=== PATIENT | female | born 1985 | race Caucasian/White ===

== ENCOUNTER → 2021-04-12 10:48 | Outpatient (CLI) | payer SELFPAY ==
--- NOTE | 2021-04-13 10:41 | PC.NURSE ---
notified pt of positive covid swab result
--- NOTE | 2021-04-13 12:30 | PC.NURSE ---
notified pt of positive covid result at this time.
== END ==
PROVIDERS: Visit Provider Nurse Practitioner
DX: U07.1 COVID-19 (principal)
CPT/HCPCS: C9803; U0003; U0005

== ENCOUNTER → 2022-09-13 09:45 | Outpatient (CLI) | payer BC, SELFPAY ==
[2022-09-13 17:08] LABS: Chloride 96 mmol/L (98-107); Sodium 138 mmol/L (136-145)
[2022-09-13 17:09] LABS: Potassium 4.3 mmoL/L (3.5-5.1)
[2022-09-13 17:11] LABS: Alanine Aminotransferase 16 U/L (12-78); Albumin Level 4.2 g/dl (3.5-5.0); Albumin/Globulin Ratio 1.4 (1.1-1.8); Alkaline Phosphatase 66 U/L (38-126); Anion Gap 17.3 mEq/L (5-15); Aspartate Amino Transferase 26 U/L (14-36); Bilirubin,Total 0.4 mg/dl (0.2-1.3); Blood Urea Nitrogen 10 mg/dl (7-17); Carbon Dioxide 29 mmol/L (22.0-30.0); Cholesterol 173 mg/dl (140-200); Estimated Glomerular Filt Rate 95 ml/min (>60); GFR (African American) 115 ML/MIN (>60); Globulin 2.9 g/dL (1.3-3.2); Total Protein,Serum 7.1 g/dl (6.3-8.2); Triglycerides 69 mg/dl (30-150); VLDL Cholesterol 14 mg/dL (0-40)
[2022-09-13 17:12] LABS: Calcium 9.4 mg/dl (8.4-10.2); Chol/HDL Ratio 2.4 (1-3.5); Glucose 89 mg/dl (74-100); HDL Cholesterol 73 mg/dl (40-60)
[2022-09-13 17:27] LABS: Basophils % 0.3 % (0.1-2.0); Eosinophils # 0.1 K/mm3 (0.0-0.4); Eosinophils % 1.7 % (0.1-12.0); Hematocrit 40.4 % (37.0-47.0); Hemoglobin 12.8 g/dL (12.2-16.2); Lymphocytes # 1.6 K/mm3 (0.7-4.5); Lymphocytes % 26.7 % (10-50); Mean Corpuscular HGB Conc 31.8 g/dL (31.8-35.4); Mean Corpuscular Hemoglobin 26.6 pg (27.0-31.2); Mean Corpuscular Volume 83.7 fl (81-99); Mean Platelet Volume 8.2 fl (7.4-10.4); Monocytes # 0.5 K/mm3 (0.1-1.0); Monocytes % 7.7 % (1.7-9.3); Neutrophils # 3.9 K/mm3 (1.8-7.8); Neutrophils % 63.7 % (37.0-80.0); Platelet Count 267 K/mm3 (142-424); Red Blood Count 4.82 M/mm3 (4.20-5.40); Red Cell Distribution Width 13.4 % (11.5-17.5); White Blood Count 6.1 K/mm3 (4.8-10.8)
[2022-09-13 17:29] LABS: Direct LDL Cholesterol 92.76 mg/dL (100-129)
[2022-09-13 17:47] LABS: Thyroid Stimulating Hormone 2.07 uIU/mL (0.465-4.68)
[2022-09-13 18:04] LABS: Hemoglobin A1C 4.8 % (4.0-6.0)
== END ==
PROVIDERS: PCP Nurse Practitioner Family; Visit Provider Nurse Practitioner Family
DX: R63.5 Abnormal weight gain (principal); Z68.35 Body mass index [BMI] 35.0-35.9, adult; Z13.220 Encounter for screening for lipoid disorders; Z13.29 Encounter for screening for other suspected endocrine disorder; Z13.1 Encounter for screening for diabetes mellitus
CPT/HCPCS: 80053; 80061; 83036; 84443; 85025